=== PATIENT | female | born 1970 | race Caucasian/White ===

== ENCOUNTER 2023-09-07 13:47 | Emergency (ER) | payer BC, SELFPAY ==
[2023-09-07 14:00] VITALS: BP 118/66; PULSE 78; RESP 18; TEMP 36.9; O2SAT 99; BMI 23.2
--- NOTE | 2023-09-07 14:05 | ED.GENADULT ---
HPI - General Adult General Time Seen by Provider: 14:05 Date Seen: 09/07/23 Chief complaint: Skin/Abscess/Foreign Body Stated complaint: L elbow infection Time Seen by Provider: 09/07/23 14:05 Source: patient, RN notes reviewed and old records reviewed Mode of arrival: ambulatory Limitations: no limitations History of Present Illness HPI narrative: 53-year-old female who comes in today with left elbow pain. Patient has 3 days of elbow pain, no trauma. Otherwise feels well. Related Data Previous Rx's ?Medication ?Instructions ?Recorded fluconazole 150 mg tablet 150 mg PO Q3D 2 doses #2 tabs 09/07/23 Allergies Allergy/AdvReac Type Severity Reaction Status Date / Time Sulfa (Sulfonamide Allergy Verified 09/07/23 14:00 Antibiotics) PFSH PFSH Social History Smoking Status: Never smoker How often do you have a drink containing alcohol: never AUDIT-C Alcohol total score: 0 Non-prescribed substance use: denies use service: No Exam Narrative: Exam Narrative: General: well nourished , NAD Head: Atraumatic and normocephalic ENT: External ears and external nose are normal Eyes: Conjunctiva clear, pupils are equal reactive, external ocular motions are intact Neck: Full spontaneous range of motion of the neck Lungs: No respiratory distress Musculoskeletal: Tenderness of the left elbow medial with some boggy edema and erythema in this area. Limited extension to about 10?, limited flexion to 90? but no pain within this range. Minimal pain with supination and pronation. Neurologic: No gross focal neurologic deficits Skin: No rashes Psych: Mood and affect are appropriate Const: Vital Signs, click to edit/add: Vital Signs - 24 hr 09/07/23 14:00 Temperature 98.5 F Pulse Rate [Pulse Oximeter] 78 Respiratory Rate 18 Blood Pressure [Ri ght Upper Arm] 118/66 Pulse Oximetry 99 Oxygen Delivery Me thod Room Air Course Course ED Course: Patient seen and examined, presents today with left elbow pain for 3 days. On exam there is marked tenderness of the medial elbow along the ulnar groove with limited motion, no pain with movement within her limited range. Reevaluation(s) Time of Reevaluation #1: 15:08 Reevaluation #1: X-rays independently reviewed by me with no true lateral images, within the limitations of the x-rays, no acute findings. Care was discussed with Dr. Rodriguez, radiology who recommend CT scan of the elbow with contrast to further evaluate for infection or effusion. Time of Reevaluation #2: 15:50 Reevaluation #2: Labs independently interpreted by me with negative CRP, normal white blood cell count. Attempted arthrocentesis using lateral approach. Patient is unable to fully bend the elbow 90? and did not tolerate this very well, no fluid obtained. Time of Reevaluation #3: 18:11 Reevaluation #3: CT scan of the elbow does not demonstrate findings of effusion. There is soft tissue swelling and subcutaneous emphysema at the olecranon which likely represents where I injected for joint fluid aspiration however this is somewhat more prominent than would be expected suspect there may be cellulitis here. Patient was started on antibiotics, sling and follow-up with orthopedics. Vital Signs Vital signs: Initial Vital Signs Temperature 98.5 F 09/07/23 14:00 Temperature Source Temporal Artery Scan 09/07/23 14:00 Pulse Rate 78 09/07/23 14:00 Pulse Rhythm Regular 09/07/23 14:00 Respiratory Rate 18 09/07/23 14:00 Blood Pressure 118/66 09/07/23 14:00 Blood Pressure Mean 83 09/07/23 14:00 Blood Pressure Position Supine 09/07/23 14:00 Pulse Oximetry 99 09/07/23 14:00 Oxygen Delivery Method Room Air 09/07/23 14:00 Vital Signs Temperature 98.5 F 09/07/23 14:00 Pulse Rate 78 09/07/23 14:00 Respiratory Rate 18 09/07/23 14:00 Blood Pressure 118/66 09/07/23 14:00 Pulse Oximetry 99 09/07/23 14:00 Oxygen Delivery Method Room Air 09/07/23 14:00 Temperature 98.5 F 09/07/23 14:00 Pulse Rate 78 09/07/23 14:00 Respiratory Rate 18 09/07/23 14:00 Blood Pressure 118/66 09/07/23 14:00 Pulse Oximetry 99 09/07/23 14:00 Oxygen Delivery Method Room Air 09/07/23 14:00 Medications Administered Medications: Discontinued Medications Generic Name Dose Route Start Last Admin Trade Name Freq PRN Reason Stop Dose Admin Ketorolac Tromethamine 15 mg 09/07/23 15:51 09/07/23 16:06 Ketorolac 15 Mg/Ml Inj IVP 09/07/23 15:52 15 mg ONCE ONE Administration Medical Decision Making Lab Data Labs: Lab Results 09/07/23 Range/Units 15:00 WBC 10.26 (4.50-11.00) K/uL RBC 4.91 (4.00-5.20) m/uL Hgb 15.8 (12.0-16.0) gm/dL Hct 47.0 (33.0-51.0) % MCV 96 (80-100) fL MCH 32 (26-34) pg MCHC 34 (32-36) gm/dL RDW Coeff of [place] 12.0 (11.5-15.5) % Plt Count 243 (140-440) K/uL Neut % (Auto) 65.2 (42.0-72.0) % Lymph % (Auto) 24.7 (20-44) % [place] % (Auto) 8.2 (0.0-11.0) % Eos % (Auto) 1.5 (0.0-7.0) % Baso % (Auto) 0.3 (0.0-3.0) % Neut # (Auto) 6.70 (1.7-7.0) K/uL Lymph # (Auto) 2.53 (0.90-2.90) K/uL [place] # (Auto) 0.80 (0.00-0.90) K/UL Eos # (Auto) 0.15 (0.00-0.50) K/uL Baso # (Auto) 0.03 (0.00-0.30) K/uL Abs Immat Gran (auto) 0.01 (0.00-0.30) K/uL Imm/Tot Granulo (auto) 0.1 % Sodium 141 (135-149) mmol/L Potassium 3.7 (3.6-5.1) mmol/L Chloride 102 (96-114) mmol/L Carbon Dioxide 30 (20-32) mmol/L Anion Gap 9 (7-15) mEq/L BUN 25 (7-30) mg/dL Creatinine 0.5 (0.5-1.5) mg/dL Estimated Creat Clear 95.93 Estimated GFR 111 ml/min Glucose 113 (60-115) mg/dL Calcium 9.0 (8.4-10.6) mg/dL C-Reactive Protein < 0.5 L (0.5-1.0) mg/dL Discharge Plan Discharge Clinical Impression: Cellulitis Patient Disposition: Home, Self-Care Additional Instructions: Ice 15-20 minutes at a time every 2 or 3 hours while awake Follow-up with your primary care doctor next week Wear sling for comfort, light activity with the left arm Activity Level: Light activity Discharge Diet: Regular Prescriptions: New fluconazole 150 mg tablet 150 mg PO Q3D Qty: 2 0RF Rx Instructions: Take the 1st dose on your last day of antibiotics and repeat in 3 days if needed Follow Up/Referrals: Miguelina Ponce, PAAdrianC [Primary Care Provider] - Stand Alone Forms: MyHealth Info Instructions
--- NOTE | 2023-09-07 14:17 | CRLHL7_ITS ---
For Patients: As a result of the Century Cures Act, medical imaging exams and procedure reports are released immediately into your electronic medical record. You may view this report before your referring provider. If you have questions, please contact your health care provider. Indication: Pain, no injury Comparison: None available. Technique: AP and oblique views left elbow were obtained. Findings: There is no displaced fracture or dislocation. The joint spaces are grossly preserved. Nonvisualization of the supracondylar fat pad due to lack of lateral projection. Otherwise, unremarkable soft tissues. Impression: Overall, limited exam due to lack of a lateral projection. No obvious displaced fracture. If there remains persistent clinical concern recommend repeating films with lateral projection versus CT for improved characterization of the entire elbow joint if there remains persistent clinical concern. Dictated by Elijah Rodriguez MD @ 09/07/2023 3:05:43 PM (Electronically Signed)
--- NOTE | 2023-09-07 15:15 | CRLHL7_ITS ---
For Patients: As a result of the Century Cures Act, medical imaging exams and procedure reports are released immediately into your electronic medical record. You may view this report before your referring provider. If you have questions, please contact your health care provider. Indication: Tenderness of medial left elbow. Evaluate for infection/effusion Technique: CT of the left elbow with 61 cc of Isovue 370 IV contrast. Please note that all CT scans at this facility use dose modulation, iterative reconstruction, and/or weight-based dosing when appropriate to reduce radiation dose to as low as reasonably achievable. Comparison: Left elbow radiographs from the same day Findings: Mild soft tissue swelling in the region of the olecranon with several adjacent foci of subcutaneous emphysema. Possible overlying skin wound and skin thickening. No underlying fracture, periosteal reaction, or aggressive osseous lesion. No elbow joint effusion. Normal alignment. No radiopaque foreign body. Impression: Soft tissue swelling and subcutaneous emphysema about the olecranon could represent septic olecranon bursitis, cellulitis, or sequela trauma/laceration with surrounding inflammation. No underlying bony abnormality or CT evidence for osteomyelitis. Please note that all CT scans at this facility use dose modulation, iterative reconstruction, and/or weight-based dosing when appropriate to reduce radiation dose to as low as reasonably achievable. Dictated by Ulises Lopez MD @ 09/07/2023 6:07:51 PM (Electronically Signed)
[2023-09-07 15:27] LABS: Chloride* 102 mmol/L (96-114)
[2023-09-07 15:28] LABS: Potassium* 3.7 mmol/L (3.6-5.1); Sodium* 141 mmol/L (135-149)
[2023-09-07 15:30] LABS: Creatinine* 0.5 mg/dL (0.5-1.5); Est. Creatinine Clearance* 95.93; Estimated Glomerular Filt Rate 111 ml/min
[2023-09-07 15:31] LABS: Anion Gap 9 mEq/L (7-15); Blood Urea Nitrogen* 25 mg/dL (7-30); Carbon Dioxide* 30 mmol/L (20-32); Glucose* 113 mg/dL (60-115)
[2023-09-07 15:32] LABS: Basophils Absolute Auto 0.03 K/uL (0.00-0.30); Basophils Percent Auto 0.3 % (0.0-3.0); Eosinophils Absolute Auto 0.15 K/uL (0.00-0.50); Eosinophils Percent Auto 1.5 % (0.0-7.0); Hemoglobin* 15.8 gm/dL (12.0-16.0); Immature Granulocytes Abs Auto 0.01 K/uL (0.00-0.30); Immature Granulocytes Pct Auto 0.1 %; Lymphocytes Absolute Auto 2.53 K/uL (0.90-2.90); Lymphocytes Percent Auto 24.7 % (20-44); Mean Corpuscular HGB Conc 34 gm/dL (32-36); Mean Corpuscular Hemoglobin 32 pg (26-34); Mean Corpuscular Volume 96 fL (80-100); Monocytes Percent Auto 8.2 % (0.0-11.0); Neutrophils Percent Auto 65.2 % (42.0-72.0); Platelet Count* 243 K/uL (140-440); Red Blood Count 4.91 m/uL (4.00-5.20); White Blood Count* 10.26 K/uL (4.50-11.00)
[2023-09-07 15:33] LABS: Slide Review Reflex No
[2023-09-07 15:37] LABS: C Reactive Protein* < 0.5 mg/dL (0.5-1.0)
[2023-09-07] MEDS: KETOROLAC 15 MG/ML inj IVP (16:06)
== END 2023-09-07 18:36 | disposition home or self-care (01) ==
PROVIDERS: Emergency Provider Family Medicine; PCP Physician Assistant Medical
DX: L03.114 Cellulitis of left upper limb (principal)
CPT/HCPCS: 36415; 73080; 73201; 80048; 85025; 86140; 87040; 96374; 99284; J1885; Q9967

== ENCOUNTER 2023-11-22 12:52 | Inpatient (IN) | payer BC, SELFPAY ==
[2023-11-22] VITALS (10 sets, daily range): BP systolic 94–119; BP diastolic 52–74; PULSE 68–97; RESP 16–20; TEMP 36.4–37.7; O2SAT 95–98; BMI 25.8; BMI 25.6
--- NOTE | 2023-11-22 15:31 | CRLHL7_ITS ---
For Patients: As a result of the Century Cures Act, medical imaging exams and procedure reports are released immediately into your electronic medical record. You may view this report before your referring provider. If you have questions, please contact your health care provider. INDICATION: Lower abdominal pain. TECHNIQUE: CT abdomen and pelvis acquired with 65 mL Isovue 370 IV contrast. COMPARISON: None available. FINDINGS: Lower chest: No focal consolidation. Liver: No suspicious focal hepatic lesion. Gallbladder and bile ducts: Unremarkable. Pancreas: Unremarkable. Spleen: Unremarkable. Adrenal glands: Unremarkable. Kidneys: Kidneys enhance symmetrically, without hydronephrosis. Too small to characterize hypodense right renal lesion noted in the interpolar region. Retroperitoneum: No lymphadenopathy. Bowel and mesentery: Acute diverticulitis at the proximal sigmoid colon. There is subtle punctate focus of adjacent extraluminal air (series 2, image 95), likely reflective of micro perforation. No abscess formation at this time. Bladder: Unremarkable for degree of distention. Reproductive organs: Unremarkable. Pelvic lymph nodes: No lymphadenopathy. Vessels: Atherosclerotic calcifications. Abdominal wall: No acute abdominal wall abnormality. Bones: Multilevel degenerative changes of the spine. No suspicious/aggressive focal osseous lesion. IMPRESSION: Acute diverticulitis at the proximal sigmoid colon, complicated by subtle micro perforation. No peridiverticular abscess identified. Please note that all CT scans at this facility use dose modulation, iterative reconstruction, and/or weight-based dosing when appropriate to reduce radiation dose to as low as reasonably achievable. Dictated by Ivonne Stanton MD @ 11/22/2023 5:17:20 PM (Electronically Signed)
[2023-11-22 15:47] LABS: Appearance Urine Clear (Clear); Bilirubin Urine Negative (Negative); Blood Urine Trace-intact (Negative); Color Urine Orange (Yellow); Glucose Urine Negative (Negative); Ketones Urine 1+ (Negative); Leukocyte Esterase Urine Negative (Negative); Nitrite Urine Positive (Negative); Protein Urine Negative (Negative); Urobilinogen Urine 0.2 (0.2-1.0)
[2023-11-22 16:11] LABS: Basophils Percent Auto 0.2 % (0.0-3.0); Eosinophils Percent Auto 0.6 % (0.0-7.0); Hematocrit 41.8 % (33.0-51.0); Immature Granulocytes Pct Auto 0.2 %; Lymphocytes Percent Auto 16.7 % (20-44); Mean Corpuscular HGB Conc 34 gm/dL (32-36); Mean Corpuscular Hemoglobin 32 pg (26-34); Mean Corpuscular Volume 96 fL (80-100); Monocytes Percent Auto 9.8 % (0.0-11.0); Neutrophils Percent Auto 72.5 % (42.0-72.0); Platelet Count* 222 K/uL (140-440); Red Blood Count 4.36 m/uL (4.00-5.20); White Blood Count* 14.08 K/uL (4.50-11.00)
[2023-11-22] MEDS: KETOROLAC 15 MG/ML inj IVP (16:23)
[2023-11-22 16:27] LABS: Albumin* 4.5 g/dL (3.3-5.0); Chloride* 103 mmol/L (96-114)
[2023-11-22 16:28] LABS: Potassium* 3.5 mmol/L (3.6-5.1); Sodium* 138 mmol/L (135-149)
[2023-11-22 16:29] LABS: Bacteria Urine Few; RBC Urine 0-2 (0-2); Squamous Epithelial Cell Urine Few (None-Few); WBC Urine 0-2 (0-5)
[2023-11-22 16:30] LABS: Alkaline Phosphatase* 67 U/L (40-150); Anion Gap 8 mEq/L (7-15); Aspartate Amino Transferase* 26 U/L (12-35); Bilirubin Total* 0.5 mg/dL (0.1-1.5); Blood Urea Nitrogen* 19 mg/dL (7-30); Carbon Dioxide* 27 mmol/L (20-32); Creatinine* 0.6 mg/dL (0.5-1.5); Estimated Glomerular Filt Rate 106 ml/min; Slide Review Reflex No; Total Protein* 7.2 g/dL (6.0-8.3)
[2023-11-22 16:31] LABS: Alanine Aminotransferase* 20 U/L (4-35); Calcium* 8.7 mg/dL (8.4-10.6); Glucose* 128 mg/dL (60-115)
--- NOTE | 2023-11-22 16:41 | ED.GENADULT ---
HPI - General Adult General Date Seen: 11/22/23 Chief complaint: Urogenital Problems, Female Stated complaint: Low abd back pain sent from Time Seen by Provider: 11/22/23 15:11 Source: patient Mode of arrival: ambulatory Limitations: no limitations History of Present Illness HPI narrative: Patient is a 53-year-old female presenting to the emergency department for low back and lower abdominal pain. States starting yesterday she started having lower back pain more on left than the right then this morning noticed she had lower abdominal pain. States he yesterday she did do some heavy lifting does not remember specifically hurting herself. Pain was a 10 out 10 severity last night and nothing she did seem to make it better. States she has been to have difficulty while moving because of the pain. She also states yesterday about 12:30 she had a large amount of blood in her urine. She then urinated more and did not have any further blood in the urine. States suddenly last night she her affect back pain around 04:00 that eventually improved. States now the pain is a 6/10. Initially went to urgent care and was subsequently sent to the emergency department. Denies fevers, chills, diarrhea, constipation, headache, lightheadedness, dizziness, chest pain, shortness of breath, diarrhea, constipation. States she has been eating without any issues. Has not had any associated nausea. States the pain is more in her left low back and left lower abdominal region but there is some pain on the right side also. Related Data Home Medications ?Medication ?Instructions ?Recorded ?Confirmed ascorbic acid (vitamin C) 250 mg 250 mg PO QDAY 11/22/23 11/22/23 tablet multivitamin 1 tab PO QAM 11/22/23 11/22/23 Allergies Allergy/AdvReac Type Severity Reaction Status Date / Time Sulfa (Sulfonamide Allergy Verified 11/22/23 16:07 Antibiotics) Review of Systems Status of ROS: Reports: 10 or more systems reviewed and unremarkable except as noted in History and below [facility] Social History Smoking Status: Never smoker Do you use any of these nicotine containing products: None Second hand tobacco smoke exposure: No How often do you have a drink containing alcohol: never AUDIT-C Alcohol total score: 0 Non-prescribed substance use: denies use service: No Exam Narrative: Exam Narrative: Const: Well-nourished, Well-developed, in mild distress Eyes: PERRL, no conjunctival injection, and symmetrical lids HENT: Atraumatic external nose and ears. Moist mucous membranes. Neck: Symmetric, trachea midline, No thyromegaly. CVS: RRR, No murmurs or gallops. Peripheral pulses 2+ and equal in all extremities RESP: Unlabored respiratory effort. Clear to auscultation bilaterally. GI: Left lower quadrant and suprapubic tenderness, Nondistended, No rebound or guarding. MSK:Extremities w/o deformity, Normal Active ROM, mild tenderness left low back paraspinal region Skin: Warm, Dry. No rashes or lesions. Neuro: Normal Muscle tone, No focal neurological deficits. Psych: Awake, Alert, & Oriented x3. Appropriate mood and affect. Const: Vital Signs, click to edit/add: Vital Signs - 24 hr 11/22/23 13:10 11/22/23 17:36 Temperature 99.9 F H 97.6 F Pulse Rate [Right Radial] 97 68 Respiratory Rate 16 18 Blood Pressure [Ri ght Upper Arm] 119/74 109/60 Pulse Oximetry 95 98 Oxygen Delivery Me thod Room Air Room Air Course Vital Signs Vital signs: Initial Vital Signs Temperature 99.9 F H 11/22/23 13:10 Temperature Source Temporal Artery Scan 11/22/23 13:10 Pulse Rate 97 11/22/23 13:10 Pulse Rhythm Regular 11/22/23 13:10 Respiratory Rate 16 11/22/23 13:10 Blood Pressure 119/74 11/22/23 13:10 Blood Pressure Mean 89 11/22/23 13:10 Pulse Oximetry 95 11/22/23 13:10 Oxygen Delivery Method Room Air 11/22/23 13:10 Vital Signs Temperature 99.9 F H 11/22/23 13:10 Pulse Rate 97 11/22/23 13:10 Respiratory Rate 16 11/22/23 13:10 Blood Pressure 119/74 11/22/23 13:10 Pulse Oximetry 95 11/22/23 13:10 Oxygen Delivery Method Room Air 11/22/23 13:10 Temperature 97.6 F 11/22/23 17:36 Pulse Rate 68 11/22/23 17:36 Respiratory Rate 18 11/22/23 17:36 Blood Pressure 109/60 11/22/23 17:36 Pulse Oximetry 98 11/22/23 17:36 Oxygen Delivery Method Room Air 11/22/23 17:36 Medications Administered Medications: Discontinued Medications Generic Name Dose Route Start Last Admin Trade Name Hannah PRN Reason Stop Dose Admin Ketorolac Tromethamine 15 mg 11/22/23 16:16 11/22/23 16:23 Ketorolac 15 Mg/Ml Inj IVP 11/22/23 16:17 15 mg ONCE ONE Administration Medical Decision Making MDM Narrative Medical decision making narrative: Patient is a 53-year-old female presenting for left lower back, left lower abdominal pain that started yesterday. Differential at this time includes muscle strain, diverticulitis, nephrolithiasis, SBO. Seems unlikely to be related to appendicitis as she has no right lower quadrant or periumbilical tenderness. Also unlikely to be gallbladder issues or pancreatitis considering location of symptoms. Symptoms could be related to UTI. Will order CBC, CMP, urinalysis. Also do CT scan of the abdomen pelvis with IV contrast. Toradol given for pain White count is elevated 14.08. She is feeling much better after the Toradol was given. CMP shows no concerning abnormalities. Her urinalysis is positive for nitrites but otherwise no signs of UTI. This could be early stages of UTI. CT scan was done returned showing diverticulitis with subtle microperforations. I spoke to the on-call general surgeon Dr. Mays and she recommends admission for an IV antibiotics. Patient be placed is NPO. Patient is agreeable to this plan. Patient is accepted to the hospitalist service. Zosyn started per General surgery recommendations. Lab Data Labs: Lab Results 11/22/23 11/22/23 Range/Units 15:36 15:58 WBC 14.08 H (4.50-11.00) K/uL RBC 4.36 (4.00-5.20) m/uL Hgb 14.0 (12.0-16.0) gm/dL Hct 41.8 (33.0-51.0) % MCV 96 (80-100) fL MCH 32 (26-34) pg MCHC 34 (32-36) gm/dL RDW Coeff of [place] 12.0 (11.5-15.5) % Plt Count 222 (140-440) K/uL Neut % (Auto) 72.5 H (42.0-72.0) % Lymph % (Auto) 16.7 L (20-44) % [place] % (Auto) 9.8 (0.0-11.0) % Eos % (Auto) 0.6 (0.0-7.0) % Baso % (Auto) 0.2 (0.0-3.0) % Neut # (Auto) 10.20 H (1.7-7.0) K/uL Lymph # (Auto) 2.40 (0.90-2.90) K/uL [place] # (Auto) 1.40 H (0.00-0.90) K/UL Eos # (Auto) 0.10 (0.00-0.50) K/uL Baso # (Auto) 0.00 (0.00-0.30) K/uL Abs Immat Gran (auto) 0.00 (0.00-0.30) K/uL Imm/Tot Granulo (auto) 0.2 % Sodium 138 (135-149) mmol/L Potassium 3.5 L (3.6-5.1) mmol/L Chloride 103 (96-114) mmol/L Carbon Dioxide 27 (20-32) mmol/L Anion Gap 8 (7-15) mEq/L BUN 19 (7-30) mg/dL Creatinine 0.6 (0.5-1.5) mg/dL Estimated Creat Clear 76.10 Estimated GFR 106 ml/min Glucose 128 H (60-115) mg/dL Calcium 8.7 (8.4-10.6) mg/dL Total Bilirubin 0.5 (0.1-1.5) mg/dL AST 26 (12-35) U/L ALT 20 (4-35) U/L Alkaline Phosphatase 67 (40-150) U/L Total Protein 7.2 (6.0-8.3) g/dL Albumin 4.5 (3.3-5.0) g/dL Urine Color [place] A (Yellow) Urine Appearance Clear (Clear) Urine pH 6.0 (5.0-8.5) Ur Specific [place] 1.010 (1.000-1.030) Urine Protein Negative (Negative) Urine Glucose (UA) Negative (Negative) Urine Ketones 1+ A (Negative) Urine Blood Trace-intact A (Negative) Urine Nitrite Positive A (Negative) Urine Bilirubin Negative (Negative) Urine Urobilinogen 0.2 (0.2-1.0) Ur Leukocyte Esterase Negative (Negative) Urine RBC 0-2 (0-2) Urine WBC 0-2 (0-5) Ur Squamous Epith Cells Few (None-Few) Urine Bacteria Few A (None) Imaging Data CT scan abdomen pelvis: Attestation: I have reviewed the pertinent imaging results. Radiologist's impression: Acute diverticulitis at the proximal sigmoid colon, complicated by subtle micro perforation. No peridiverticular abscess identified. Please note that all CT scans at this facility use dose modulation, iterative reconstruction, and/or weight-based dosing when appropriate to reduce radiation dose to as low as reasonably achievable. Dictated by Ivonne Stanton MD @ 11/22/2023 5:17:20 PM Discharge Plan Discharge Clinical Impression: Diverticulitis of colon with perforation Patient Disposition: Admitted As Observation Condition: Stable
[2023-11-22] MEDS: PIPERACILLIN/TAZOBACTAM 3.375 GM in 0.9 % SODIUM CHLORIDE Mini-bag 100 ML IVPB ×2 (17:59→23:08)
[2023-11-22 19:41] LABS: C Reactive Protein* 4.2 mg/dL (0.5-1.0)
[2023-11-22 19:55] LABS: Procalcitonin* 0.05 ng/mL (<0.50)
--- NOTE | 2023-11-22 20:02 | P.IMHP_ITS ---
Hospitalist- H&P: HPI History of Present Illness Date Seen: 11/22/23 Chief complaint: Low abd back pain sent from Narrative: ADMISSION HISTORY AND PHYSICAL - HOSPITALIST Chief Complaint: Hematuria, acute abdominal pain HPI: 53-year-old white female who was relatively healthy presents with acute onset of abdominal pain. I have reviewed the ER note and concur with the history given there. Acute onset was day prior to admission. Mild nausea. No diarrhea. She did have 1 episode of ruba hematuria and other symptoms of an acute UTI just before the onset of the abdominal pain. She associated the new abdominal pain which radiated to her low back as part of her UTI. She did have a colonoscopy 1 year ago that was clear. No mention of diverticula. ER COURSE: imaging, labs. general surg consult. CODE STATUS: FULL CODE EMERGENCY CONTACT PLAN: Marko Louise Rel To Pat Cell I've updated the PFSH, medications and allergies in the Expanse tabs. INVESTIGATIONS: LABS/MICRO/ECG/IMAGING CBC reflects an elevated white blood cell count, 14.08 72% neutrophils Hemoglobin is 14, platelets are normal. Electrolytes revealed just a very mild hypokalemia at 3.5. Glucose 128. Normal renal function. Normal liver function. CRP is 4.2 UA shows positive nitrite CT abdomen pelvis Acute diverticulitis at the proximal sigmoid colon, complicated by subtle micro perforation. No peridiverticular abscess identified. Colonoscopy 09/[address] Spear Impressions/Post-Op Diagnosis: - The entire examined colon is normal on direct and retroflexion views. - No specimens collected. REVIEW OF SYSTEMS: 12-point ROS completed with patient and negative unless otherwise stated in HPI or below. PHYSICAL EXAM: CONSTITUTIONAL: Conversive, good historian. A/O. Knows setting and context. No acute distress. VITAL SIGNS: see record. HEENT: Normocephalic, atraumatic. PERRL, EOMI, conjunctivae pink, no scleral icterus. Ears and nose externally normal. Pharynx normal. NECK: No JVD. No carotid bruit, no thyromegaly, no adenopathy. CHEST: Clear to auscultation bilaterally HEART: S1 and S2 normal. No harsh murmurs. No edema. ABDOMEN: tender L>R to palpation. not rigid, no rebound. no CVAT. MUSCULOSKELETAL: No gross joint deformity or swelling. NEURO: Cranial nerves intact. Grossly intact. No asymmetric findings. SKIN: No rashes, petechiae, concerning changes PSYCHIATRIC: Euthymic. ADMIT TO MEDSURG: FLOOR CARE DVT: Lovenox GI: PO intake/PPI Time spent: Today I spent 75 minutes seeing the patient, discussing the patient with ER staff, reviewing Expanse and EPIC notes/diagnostics, discussing the care plan with our care time that includes social work, PT/OT, pharmacy, RT, residential and documenting my impressions and plan in the medical record. [facility] Medical History (Updated 11/22/23 @ 20:49 by Ary Berman MD) Mild anxiety ?F41.9 - Anxiety disorder, unspecified (ICD-10) Surgical History (Updated 11/22/23 @ 20:47 by Ary Berman MD) No history of previous surgery Social History What is your current living situation?: I presently have a place to live Problems where you live: no known problems Problems where you live details: none In the past 12 months, utilities in danger of being shut off: no In past 12 months, lack of transportation kept you from medical appts, meetings, work, or getting things needed for daily living: no In the past 12 mos, have been you worried that your food would run out before you had money to buy more?: never true In the past 12 mos, the food you bought just didn't last and you didn't have money to buy more?: never true Highest level of school completed/degree received: some college, no degree Smoking Status: Former smoker Do you use any of these nicotine containing products: None Second hand tobacco smoke exposure: No How often do you have a drink containing alcohol: never AUDIT-C Alcohol total score: 0 Non-prescribed substance use: denies use Caffeine: No How often does anyone, including family, friends and others, physically hurt you : never How often does anyone, including family, friends and others, insult or talk down to you: never How often does anyone, including family, friends and others, threaten you with harm: never How often does anyone, including family, friends and others, scream or curse at you: never service: No Meds Home Medications and Allergies Home Medications ?Medication ?Instructions ?Recorded ?Confirmed ?Type ascorbic acid (vitamin C) 250 mg 250 mg PO QDAY 11/22/23 11/22/23 History tablet multivitamin 1 tab PO QAM 11/22/23 11/22/23 History Allergies Allergy/AdvReac Type Severity Reaction Status Date / Time Sulfa (Sulfonamide Allergy Verified 11/22/23 16:07 Antibiotics) Exam Const: Vital Signs, click to edit/add: Vital Signs - 24 hr 11/22/23 13:10 11/22/23 17:36 11/22/23 18:43 Temperature 99.9 F H 97.6 F 98.5 F Pulse Rate [Right Radial] 97 68 79 Respiratory Rate 16 18 20 Blood Pressure [Le ft Arm] 114/64 Blood Pressure [Ri ght Upper Arm] 119/74 109/60 Pulse Oximetry 95 98 96 Oxygen Delivery Me thod Room Air Room Air Room Air 11/22/23 19:43 Temperature 98.5 F Pulse Rate [Right Radial] 79 Respiratory Rate 18 Blood Pressure [Le ft Arm] 114/64 Blood Pressure [Ri ght Upper Arm] Pulse Oximetry 96 Oxygen Delivery Me thod Room Air Hospitalist - H&P: Result Labs Labs: Short CBC 11/22/23 Range/Units 15:58 WBC 14.08 H (4.50-11.00) K/uL Hgb 14.0 (12.0-16.0) gm/dL Hct 41.8 (33.0-51.0) % Plt Count 222 (140-440) K/uL BMP 11/22/23 15:58 Sodium 138 Potassium 3.5 L Chloride 103 Carbon Dioxide 27 BUN 19 Creatinine 0.6 Glucose 128 H Calcium 8.7 Liver Function 11/22/23 Range/Units 15:58 Total Bilirubin 0.5 (0.1-1.5) mg/dL AST 26 (12-35) U/L ALT 20 (4-35) U/L Alkaline Phosphatase 67 (40-150) U/L Albumin 4.5 (3.3-5.0) g/dL Urine 11/22/23 Range/Units 15:36 Urine Color [place] A (Yellow) Urine Appearance Clear (Clear) Urine pH 6.0 (5.0-8.5) Ur Specific [place] 1.010 (1.000-1.030) Urine Protein Negative (Negative) Urine Glucose (UA) Negative (Negative) Assessment and Plan Assessment and plan (1) Diverticulitis of colon with perforation: Problem comment: Acute diverticulitis at the proximal sigmoid colon, complicated by subtle micro perforation. No judd diverticular abscess identified. -zosyn, sips/chips, pain and nausea management -gen surg will see in the am Status: Acute (2) UTI (urinary tract infection): Problem comment: +nitrite rec'd zosyn will likely be managed by diverticulitis tx ucx pending Status: Acute (3) Renal lesion: Problem comment: Too small to characterize hypodense right renal lesion noted in the interpolar region -noted on CT when dx with acute diverticulitis October 2023 Status: Acute (4) Mild anxiety: Status: Acute
[2023-11-22] MEDS: SODIUM CHLORIDE 0.9 % (FLUSH) 10 ML SYRINGE 5 ML IVF ×2 (20:03→20:52)
[2023-11-22] MEDS: PANTOPRAZOLE SODIUM 40 MG INJ IVP (20:03)
[2023-11-22] MEDS: ENOXAPARIN 40 MG/0.4 ML INJ SUBCUT (20:04)
[2023-11-22] MEDS: POTASSIUM CHLORIDE 10 MEQ/100 ML PIGGYBACK 100 MEQ IVPB (20:06)
[2023-11-22] MEDS: 5 % DEX/0.9 SOD CHL+KCL 20 mEq 1,000 ML 125 ML IV (20:06)
[2023-11-22] MEDS: ONDANSETRON 2 MG/ML inj 4 MG IVP (20:51)
--- NOTE | 2023-11-22 20:57 | PC.NURSE ---
Pt complaint of Nausea. Dr stopped Bolus of Pot Cl 10meq. Do not finish. Pt given Zofran Nausea improved.
--- NOTE | 2023-11-22 21:52 | PC.NURSE ---
Pt refused IV maintenance fluids. Said it was making her nauseated. Dr ordered to stop fluids at this time.
[2023-11-22] MEDS: KETOROLAC 30 MG/ML inj IVP (22:11)
[2023-11-23 02:29] VITALS: BP 95/51; PULSE 73; RESP 16; TEMP 36.6; O2SAT 96
--- NOTE | 2023-11-23 05:14 | PC.NURSE ---
Pt rested well this night. Pain minimal and controlled. Up IND in room. Afebrile. Pt BPs 90s/50s. Unable to tolerate maintenance fluids (Dr. Martins).
[2023-11-23] MEDS: PIPERACILLIN/TAZOBACTAM 3.375 GM in 0.9 % SODIUM CHLORIDE Mini-bag 100 ML IVPB ×2 (05:43→12:31)
[2023-11-23 06:51] LABS: Basophils Absolute Auto 0.03 K/uL (0.00-0.30); Basophils Percent Auto 0.3 % (0.0-3.0); Eosinophils Absolute Auto 0.13 K/uL (0.00-0.50); Eosinophils Percent Auto 1.2 % (0.0-7.0); Hematocrit 39.2 % (33.0-51.0); Hemoglobin* 13.3 gm/dL (12.0-16.0); Immature Granulocytes Abs Auto 0.01 K/uL (0.00-0.30); Immature Granulocytes Pct Auto 0.1 %; Lymphocytes Absolute Auto 2.48 K/uL (0.90-2.90); Lymphocytes Percent Auto 23.2 % (20-44); Mean Corpuscular HGB Conc 34 gm/dL (32-36); Mean Corpuscular Hemoglobin 33 pg (26-34); Mean Corpuscular Volume 96 fL (80-100); Monocytes Percent Auto 8.2 % (0.0-11.0); Neutrophils Absolute Auto 7.14 K/uL (1.7-7.0); Platelet Count* 195 K/uL (140-440); Red Blood Count 4.07 m/uL (4.00-5.20); White Blood Count* 10.67 K/uL (4.50-11.00)
[2023-11-23 06:54] LABS: Slide Review Reflex No
[2023-11-23 07:27] LABS: Chloride* 103 mmol/L (96-114)
[2023-11-23 07:28] LABS: Potassium* 3.4 mmol/L (3.6-5.1); Sodium* 138 mmol/L (135-149)
[2023-11-23 07:30] LABS: Anion Gap 6 mEq/L (7-15); Aspartate Amino Transferase* 22 U/L (12-35); Bilirubin Total* 0.8 mg/dL (0.1-1.5); Carbon Dioxide* 29 mmol/L (20-32); Creatinine* 0.6 mg/dL (0.5-1.5); Estimated Glomerular Filt Rate 106 ml/min; Total Protein* 6.6 g/dL (6.0-8.3)
[2023-11-23 07:31] LABS: Alanine Aminotransferase* 16 U/L (4-35); Alkaline Phosphatase* 60 U/L (40-150); Blood Urea Nitrogen* 16 mg/dL (7-30); Calcium* 8.5 mg/dL (8.4-10.6); Glucose* 110 mg/dL (60-115); Magnesium* 2.4 mg/dL (1.5-2.6)
[2023-11-23 07:33] LABS: C Reactive Protein* 6.8 mg/dL (0.5-1.0)
[2023-11-23 08:00] VITALS: BP 103/53; PULSE 72; RESP 18; TEMP 36.6; O2SAT 99
[2023-11-23 09:29] VITALS: O2SAT 99
--- NOTE | 2023-11-23 10:16 | P.GSCN_ITS ---
History of Present Illness Consult details Date Seen: 11/23/23 Consult date: 11/23/23 Narrative: The patient is a 53-year-old female who presented to the emergency department yesterday with diverticulitis with micro perforation. She states that on Sunday she was at work lifting items. She noticed some lower abdominal pain. She went to the bathroom to urinate a and there was a large amount of blood in the toilet. That evening her pain moved her back. She put ice on it but could not get comfortable. She had nausea but no vomiting. She had been having bowel movements but did not have a bowel movement yesterday. These were normal for her. Her pain persisted, mainly being in her pelvis but more on the left. With this she denies dysuria other than a small amount of stinging when she urinated. Nothing seemed to make her pain better or worse. She tried taking an [id number] medication for urinary tract infection but this did not help. Eventually she came in to urgent care yesterday and she was sent to the emergency department. CT scan showed diverticulitis of the proximal sigmoid colon with possible small area of microperforation. She was admitted overnight for antibiotics. Today she feels significantly better. Her pain is a 2/10. She would like to eat. She has no family history of colon cancer. She did have a colonoscopy a year ago at [facility]. It was normal. [facility] Medical History (Updated 11/22/23 @ 20:49 by Ary Berman MD) Mild anxiety ?F41.9 - Anxiety disorder, unspecified (ICD-10) Surgical History (Updated 11/22/23 @ 20:47 by Ary Berman MD) No history of previous surgery Social History What is your current living situation?: I presently have a place to live Problems where you live: no known problems Problems where you live details: none In the past 12 months, utilities in danger of being shut off: no In past 12 months, lack of transportation kept you from medical appts, meetings, work, or getting things needed for daily living: no In the past 12 mos, have been you worried that your food would run out before you had money to buy more?: never true In the past 12 mos, the food you bought just didn't last and you didn't have money to buy more?: never true Highest level of school completed/degree received: some college, no degree Smoking Status: Former smoker Do you use any of these nicotine containing products: None Second hand tobacco smoke exposure: No How often do you have a drink containing alcohol: never AUDIT-C Alcohol total score: 0 Non-prescribed substance use: denies use Caffeine: No How often does anyone, including family, friends and others, physically hurt you : never How often does anyone, including family, friends and others, insult or talk down to you: never How often does anyone, including family, friends and others, threaten you with harm: never How often does anyone, including family, friends and others, scream or curse at you: never service: No Meds Home Medications and Allergies Home Medications ?Medication ?Instructions ?Recorded ?Confirmed ?Type SUPPLEMENT PACK 1 ea PO DAILY 11/23/23 11/23/23 History Allergies Allergy/AdvReac Type Severity Reaction Status Date / Time Sulfa (Sulfonamide Allergy Verified 11/22/23 16:07 Antibiotics) Exam Narrative: Exam Narrative: General appearance: Alert, cooperative, and in no distress Eyes: PERRLA, eye lids clear, and sclera white HENT Head: Normocephalic Ears: External ears normal Pulmonary: Breathing nonlabored on room air Cardiovascular Heart: Regular rate Extremities: warm and well perfused Gastrointestinal Abdominal: No scars. Mildly tender in the lower abdomen, left greater than right. No guarding or rebound Musculoskeletal: Extremities: Upper: Both upper extremities have normal joint range of motion and intact strength. Lower: Both lower extremities have normal joint range of motion and intact strength. Skin: Normal skin color, texture, and turgor. Neurologic: No focal deficits Psychiatric: Alert, oriented, cooperative, normal affect. Const: Vital Signs, click to edit/add: Vital Signs - 24 hr 11/22/23 13:10 11/22/23 17:36 11/22/23 18:43 Temperature 99.9 F H 97.6 F 98.5 F Pulse Rate [Right Radial] 97 68 79 Respiratory Rate 16 18 20 Blood Pressure [Le ft Arm] 114/64 Blood Pressure [Ri ght Upper Arm] 119/74 109/60 Pulse Oximetry 95 98 96 Oxygen Delivery Me thod Room Air Room Air Room Air 11/22/23 19:43 11/22/23 20:25 11/22/23 22:11 Temperature 98.5 F 98.5 F Pulse Rate [Right Radial] 79 Respiratory Rate 18 18 Blood Pressure [Le ft Arm] 114/64 Blood Pressure [Ri ght Upper Arm] Pulse Oximetry 96 96 Oxygen Delivery Me thod Room Air Room Air 11/22/23 22:20 11/22/23 22:21 11/22/23 22:22 Temperature 98.4 F Pulse Rate [Right Radial] 73 73 Respiratory Rate 16 16 Blood Pressure [Le ft Arm] 94/52 L Blood Pressure [Ri ght Upper Arm] Pulse Oximetry 95 95 Oxygen Delivery Me thod Room Air 11/22/23 23:06 11/23/23 02:29 11/23/23 08:00 Temperature 98.4 F 97.9 F 97.8 F Pulse Rate [Right Radial] 73 72 Respiratory Rate 16 18 Blood Pressure [Le ft Arm] 95/51 L 103/53 L Blood Pressure [Ri ght Upper Arm] Pulse Oximetry 96 99 Oxygen Delivery Me thod Room Air Room Air 11/23/23 08:00 11/23/23 09:29 Temperature Pulse Rate [Right Radial] 72 Respiratory Rate 18 Blood Pressure [Le ft Arm] Blood Pressure [Ri ght Upper Arm] Pulse Oximetry 99 Oxygen Delivery Me thod Results Labs Labs: White blood cell count today is down to 10 from 14 yesterday. CRP today is 6.8 from 4.2 [address] scan report/results: report reviewed and image reviewed Additional studies: CT abdomen pelvis done yesterday: IMPRESSION: Acute diverticulitis at the proximal sigmoid colon, complicated by subtle micro perforation. No peridiverticular abscess identified. Dictated by Ivonne Stanton MD @ 11/22/2023 5:17:20 PM Progress Note:A&P Assessment and plan (1) Diverticulitis of colon with perforation: Status: Acute (2) UTI (urinary tract infection): Status: Acute (3) Mild anxiety: Status: Acute Plan The patient is a 53-year-old female with diverticulitis with microperforation. She is markedly improved today. I think it is reasonable to advance her diet and potentially discharge home on oral antibiotics for 10 days. She may follow up with her primary care provider as an outpatient. She and I talked about diverticular disease and indications for surgery. At this time with a small perforation, elective colectomy is not warranted, however she would go on to have more severe episodes then consideration could be had. Since she has had a colonoscopy 1 year ago I do not think it is necessary to repeat unless her symptoms do not resolve. Recommend providing patient with written information on diet following hospitalization for diverticulitis as well as high-fiber diet once her symptoms have resolved.
[2023-11-23] MEDS: KETOROLAC 30 MG/ML inj IVP (10:40)
[2023-11-23 12:48] VITALS: BP 106/63; PULSE 72; RESP 18; TEMP 36.7; O2SAT 96
--- NOTE | 2023-11-23 15:19 | PC.NURSE ---
End of Shift (0700 - 1500): Patient pleasant and cooperative, A&O. VSS, afebrile. Patient reports minimal pain this shift, managed with scheduled medication, see MAR. Tolerated clear liquid diet this shift. Independent in room.
--- NOTE | 2023-11-23 16:34 | P.DS_ITS ---
DS: Providers Provider Date Seen: 11/23/23 Date of admission: 11/22/23 18:40 Primary care physician: Miguelina Ponce PA-C Admitting Clinician: Ary Berman MD Attending Physician on discharge: Ary Berman MD Date of Discharge: 11/23/23 DS: Diagnosis Discharge Diagnosis (1) Diverticulitis of colon with perforation: Status: Acute Problem details: Acute diverticulitis at the proximal sigmoid colon, complicated by subtle micro perforation. No judd diverticular abscess identified. -Initially treated with IV zosyn, sips/chips, pain and nausea management -gen surg saw and felt she could advance diet as tolerated to a low fiber diet for 2 weeks. -Will discharge home with 10d course of Augmentin (diflucan provided in case of yeast infection) (2) UTI (urinary tract infection): Status: Acute Problem details: +nitrite rec'd zosyn Urine culture consistent with likely contamination (3) Renal lesion: Status: Acute Problem details: Too small to characterize hypodense right renal lesion noted in the interpolar region -noted on CT when dx with acute diverticulitis October 2023 (4) Mild anxiety: Status: Acute DS: Summary Hospital Course Hospital Course: Patient presented to the hospital with acute abdominal pain. CT was concerning for diverticular microperforation without abscess. She was admitted for NPO, IVF and antibiotics. She did well and general surgery consulted. She was able to advance her diet and was felt appropriate to discharge home to continue a 10d course of antibiotics with Augmentin. She will continue a low fiber diet for 2 weeks followed by high fiber diet thereafter. Status at Discharge Functional status at discharge: independent ambulation Time Spent with Patient Time attestation: Total time spent providing and/or coordinating discharge services: Time spent: Greater than 30 minutes Exam Narrative: Exam Narrative: General: Well appearing, no distress Abd: Soft, nontender, no distension Const: Vital Signs, click to edit/add: Vital Signs - 24 hr 11/22/23 17:36 11/22/23 18:43 11/22/23 19:43 Temperature 97.6 F 98.5 F 98.5 F Pulse Rate [Pulse Oximeter] Pulse Rate [Right Radial] 68 79 79 Respiratory Rate 18 20 18 Blood Pressure [Le ft Arm] 114/64 114/64 Blood Pressure [Ri ght Upper Arm] 109/60 Pulse Oximetry 98 96 96 Oxygen Delivery Me thod Room Air Room Air Room Air 11/22/23 20:25 11/22/23 22:11 11/22/23 22:20 Temperature 98.5 F 98.4 F Pulse Rate [Pulse Oximeter] Pulse Rate [Right Radial] 73 Respiratory Rate 18 16 Blood Pressure [Le ft Arm] 94/52 L Blood Pressure [Ri ght Upper Arm] Pulse Oximetry 96 95 Oxygen Delivery Me thod Room Air Room Air 11/22/23 22:21 11/22/23 22:22 11/22/23 23:06 Temperature 98.4 F Pulse Rate [Pulse Oximeter] Pulse Rate [Right Radial] 73 Respiratory Rate 16 Blood Pressure [Le ft Arm] Blood Pressure [Ri ght Upper Arm] Pulse Oximetry 95 Oxygen Delivery Me thod 11/23/23 02:29 11/23/23 08:00 11/23/23 08:00 Temperature 97.9 F 97.8 F Pulse Rate [Pulse Oximeter] Pulse Rate [Right Radial] 73 72 72 Respiratory Rate 16 18 18 Blood Pressure [Le ft Arm] 95/51 L 103/53 L Blood Pressure [Ri ght Upper Arm] Pulse Oximetry 96 99 Oxygen Delivery [place] thod Room Air Room Air 11/23/23 09:29 11/23/23 12:48 Temperature 98.0 F Pulse Rate [Pulse Oximeter] 72 Pulse Rate [Right Radial] Respiratory Rate 18 Blood Pressure [Le ft Arm] 106/63 Blood Pressure [Ri ght Upper Arm] Pulse Oximetry 99 96 Oxygen Delivery Me od Room Air DS: Data Data Completed and Pending Labs on day of discharge: Labs from last 24 hours 11/23/23 11/22/23 11/22/23 06:40 18:40 15:58 WBC 10.67 RBC 4.07 Hgb 13.3 Hct 39.2 MCV 96 MCH 33 MCHC 34 RDW Coeff of [place] 12.0 Plt Count 195 Neut % (Auto) 67.0 Lymph % (Auto) 23.2 [place] % (Auto) 8.2 Eos % (Auto) 1.2 Baso % (Auto) 0.3 Neut # (Auto) 7.14 H Lymph # (Auto) 2.48 [place] # (Auto) 0.90 Eos # (Auto) 0.13 Baso # (Auto) 0.03 Abs Immat Gran (auto) 0.01 Imm/Tot Granulo (auto) 0.1 Sodium 138 Potassium 3.4 L Chloride 103 Carbon Dioxide 29 Anion Gap 6 L BUN 16 Creatinine 0.6 Estimated Creat Clear 76.10 Estimated GFR 106 Glucose 110 Calcium 8.5 Magnesium 2.4 Total Bilirubin 0.8 AST 22 ALT 16 Alkaline Phosphatase 60 C-Reactive Protein 6.8 H 4.2 H Total Protein 6.6 Albumin 4.0 Procalcitonin 0.05 Lab Acknowledgement Test Added Preliminary micro results at discharge 11/22/23 15:36 Urine Culture - Preliminary Urine,Clean Catch < 50,000 COL/ML MIXED GRAM POSITIVE NADIA ISOLATED NO FURTHER WORKUP Discharge Plan Discharge Disposition: Home, Self-Care Date of Admission: 11/22/23 18:40 Attending Provider on Discharge: Samaria Horner Primary Care Provider: Miguelina Ponce Condition: Stable Anticipated Discharge Date/Time: 11/23/23 16:28 Discharge Medications: New amoxicillin-pot clavulanate 875-125 mg tablet 1 tab PO BID Qty: 20 0RF fluconazole [Diflucan] 100 mg tablet 100 mg PO DAILY Qty: 2 0RF Rx Instructions: Take one tablet at onset of yeast infection and again 7 days later Continued SUPPLEMENT PACK 1 ea PO DAILY Rx Instructions: packet of supplements - belarusian black radish, black seed mahamed, mvi, vit c, vit d, magnesium, etc Discharge Orders: Discharge Order (Routine); Ordered 11/23/23 Ordered By: Samaria Horner Consulting provider completed their portion of the discharge: Yes Patient Education: Amoxicillin/Clavulanate Potassium (By mouth), Fluconazole (By mouth), Diverticulitis (DC), Diverticulosis Diet (GEN) Additional Instructions: Follow up with PCP in 1-2 weeks Activity Level: No Restrictions Discharge Diet: Low Fiber Diet Detail: Low fiber for 2 weeks, then 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
--- NOTE | 2023-11-23 17:54 | PC.NURSE ---
PT VSS. A & O. Tolerated a regular diet. Amb. Independently. IV removed and intact. Patient D/C at 1700 via ambulation to home and to drive self home. Discharge education given. Discharge packet signed by RN and patient.
== END 2023-11-23 17:00 | disposition home or self-care (01) | DRG 244 ==
LOC: ED 17:39 → MEDSURG 18:36
PROVIDERS: Admitting Provider Family Medicine; Emergency Provider Student in an Organized Health Care Education/Training Program; PCP Physician Assistant Medical; Visit Provider Family Medicine
DX: K57.20 Diverticulitis of large intestine with perforation and abscess without bleeding (principal); N39.0 Urinary tract infection, site not specified; R31.9 Hematuria, unspecified; F41.9 Anxiety disorder, unspecified; N28.9 Disorder of kidney and ureter, unspecified; E87.6 Hypokalemia
CPT/HCPCS: 36415; 74177; 80053; 81001; 83735; 84145; 85025; 86140; 87086; 93005; 99283; 99284; 99285; J1650; J1885; J2405; J2470; J2543; J3480; Q9967

== ENCOUNTER 2024-05-29 16:41 | Outpatient (CLI) | payer BC, SELFPAY | END 2024-05-29 16:42 | disposition home or self-care (01) | LOC: NFLDUCREF 16:42 | PROVIDERS: PCP Physician Assistant Medical; Visit Provider Nurse Practitioner | DX: R31.9 Hematuria, unspecified (principal); N39.0 Urinary tract infection, site not specified | CPT/HCPCS: 87086 ==